=== PATIENT | male | born 1975 | race Caucasian/White ===

== ENCOUNTER 2018-12-24 19:05 | Emergency (ER) | payer SELFPAY ==
[~2018-12-24] VITALS: Ht 165.1 cm; Wt 59.1 kg
[~2018-12-24 19:05] MED LIST: GENTAMICIN EYE D5 ML OS; LORTAB 5/500 501 TAB PO; MOTRIN 600600 MG/TAB PO; NO HOME MEDICATIONS; NORCO 325 MG-51 TAB PO
== END 2018-12-24 23:35 | disposition left against medical advice (07) ==
LOC: COL.ER 19:05
DX: K08.89 Other specified disorders of teeth and supporting structures (principal)

== ENCOUNTER 2019-05-01 11:16 | Emergency (ER) | payer SELFPAY ==
[~2019-05-01] VITALS: Ht 165.1 cm; Wt 63.5 kg
[2019-05-01 11:39] VITALS: BP 126/88; TEMP 98
[2019-05-01 13:16] VITALS: PULSE 82
== END 2019-05-01 13:19 | disposition home or self-care (01) ==
LOC: COL.ER 11:16
DX: S22.31XA Fracture of one rib, right side, initial encounter for closed fracture (principal); F17.210 Nicotine dependence, cigarettes, uncomplicated; W50.0XXA Accidental hit or strike by another person, initial encounter
CPT/HCPCS: A9284

== ENCOUNTER 2019-11-16 18:26 | Emergency (ER) | payer SELFPAY ==
[~2019-11-16] VITALS: Ht 165.1 cm; Wt 54.5 kg
[2019-11-16 19:12] VITALS: TEMP 97.9
[2019-11-16 21:21] LABS: BASO % 0.4 % (0.0-2.0); EOS # 0.1 (0.0-0.7); EOS % 0.8 % (0-4.0); GRAN # 6.3 (1.4-6.5); GRAN % 62.7 % (42.2-75.2); HEMATOCRIT 46.4 % (42.0-52.0); HEMOGLOBIN 15.4 g/dl (13.5-18.0); LYMPH # 2.5 (1.2-3.4); LYMPH % 25.2 % (20.0-51.0); MEAN CELL VOLUME 90 fl (80.0-100.0); MEAN CORPUSCULAR HEMOGLOBIN 30 pg (27.0-31.0); MEAN CORPUSCULAR HGB CONC 33 g/dl (33.0-37.0); MEAN PLATELET VOLUME 9.2 fl (7.4-10.4); MONO # 1.1 (0.1-0.6); MONO % 10.5 % (1.7-9.3); PLATELET COUNT 480 K/mm3 (130-400); RED BLOOD COUNT 5.18 M/mm3 (4.20-5.60); REDCELL DISTRIBUTION WIDTH-CV 14.5 % (11.5-14.5)
[2019-11-16 22:11] LABS: ALANINE AMINOTRANSFERASE 243 U/L (21-72); ALBUMIN 4.3 gm/dL (3.5-5.0); ALKALINE PHOSPHATASE 98 U/L (50-136); ANION GAP 8 mmol/L (7-16); AST,SGOT 104 U/L (15-37); BILIRUBIN,TOTAL 0.4 mg/dL (0.0-1.0); BLOOD UREA NITROGEN 18 mg/dL (9-20); CARBON DIOXIDE 27 mmol/L (22-30); CHLORIDE 101 mmol/L (98-107); GLUCOSE 103 mg/dL (74-106); LIPASE 58 U/L (23-300); POTASSIUM 4.3 mmol/L (3.4-5.0); SODIUM 137 mmol/L (137-145); TOTAL PROTEIN 7.5 gm/dL (6.4-8.2)
[2019-11-16 22:12] LABS: C-REACTIVE PROTEIN < 0.5 mg/dL (0.0-0.9)
[2019-11-16 22:29] LABS: COLLECTION METHOD CLEAN CATCH
[2019-11-16 22:37] LABS: MUCOUS Present /lpf; PH 5 (5-8); SQUAMOUS EPITHELIAL 0-2 /hpf; URINE APPEARANCE Clear; URINE BACTERIA None Seen /hpf; URINE BILIRUBIN Negative (NEGATIVE); URINE BLOOD Negative (NEGATIVE); URINE COLOR Yellow; URINE GLUCOSE Negative (NEGATIVE); URINE KETONE Negative (NEGATIVE); URINE LEUKOCYTE ESTERASE Negative (NEGATIVE); URINE NITRATE Negative (NEGATIVE); URINE PROTEIN(semi-quant) Negative (NEGATIVE); URINE RBC 0-2 /hpf; URINE UROBILINOGEN Negative (NEGATIVE)
[2019-11-16] MEDS ORDERED: FLEXERIL 1010 MG/TAB PO (23:04)
[2019-11-16 23:15] VITALS: BP 102/64; PULSE 88
== END 2019-11-16 23:15 | disposition home or self-care (01) ==
LOC: COL.ER 18:26
PROVIDERS: Emergency Medicine
DX: M54.5 Low back pain (principal); G89.29 Other chronic pain; R19.7 Diarrhea, unspecified; R10.30 Lower abdominal pain, unspecified; R11.0 Nausea; F17.210 Nicotine dependence, cigarettes, uncomplicated; Z87.39 Personal history of other diseases of the musculoskeletal system and connective tissue
CPT/HCPCS: J1885

== ENCOUNTER 2019-11-17 23:07 | Emergency (ER) | payer SELFPAY ==
[~2019-11-17] VITALS: Ht 165.1 cm; Wt 59.1 kg
[~2019-11-17 23:07] MED LIST changes: +FLEXERIL 1010 MG/TAB PO
[2019-11-17 23:38] LABS: BASO % 0.2 % (0.0-2.0); EOS # 0.1 (0.0-0.7); EOS % 0.7 % (0-4.0); GRAN # 9.6 (1.4-6.5); GRAN % 77.1 % (42.2-75.2); HEMATOCRIT 47.7 % (42.0-52.0); HEMOGLOBIN 15.6 g/dl (13.5-18.0); LYMPH # 1.4 (1.2-3.4); LYMPH % 11.1 % (20.0-51.0); MEAN CELL VOLUME 90 fl (80.0-100.0); MEAN CORPUSCULAR HEMOGLOBIN 29 pg (27.0-31.0); MEAN CORPUSCULAR HGB CONC 33 g/dl (33.0-37.0); MEAN PLATELET VOLUME 8.5 fl (7.4-10.4); MONO # 1.3 (0.1-0.6); MONO % 10.5 % (1.7-9.3); PLATELET COUNT 485 K/mm3 (130-400); REDCELL DISTRIBUTION WIDTH-CV 14.4 % (11.5-14.5)
[2019-11-17 23:44] LABS: ALBUMIN 4.6 gm/dL (3.5-5.0); BILIRUBIN,TOTAL 0.6 mg/dL (0.0-1.0); CALCIUM 9.4 mg/dL (8.4-10.2); CREATININE, serum 1.03 (0.66-1.25); POTASSIUM 4.7 mmol/L (3.4-5.0); TOTAL PROTEIN 8.2 gm/dL (6.4-8.2)
[2019-11-18 02:00] VITALS: BP 122/68; PULSE 72; TEMP 97.8
== END 2019-11-18 02:00 | disposition home or self-care (01) ==
LOC: COL.ER 23:07
PROVIDERS: Emergency Medicine
DX: K85.90 Acute pancreatitis without necrosis or infection, unspecified (principal)
CPT/HCPCS: J2765; J7030; Q9967

== ENCOUNTER 2021-04-15 22:04 | Emergency (ER) | payer SELFPAY ==
[~2021-04-15] VITALS: Ht 165.1 cm; Wt 59.1 kg
[~2021-04-15 22:04] MED LIST changes: +BACTRIM DS 8001 TAB PO; +CEPHALEXIN500 M1 PO
[2021-04-16 00:20] VITALS: BP 103/76; PULSE 65; TEMP 98.4
== END 2021-04-16 00:20 | disposition home or self-care (01) ==
LOC: COL.ER 22:04
DX: E86.0 Dehydration (principal); R42 Dizziness and giddiness; F17.210 Nicotine dependence, cigarettes, uncomplicated

== ENCOUNTER 2021-05-24 00:03 | Emergency (ER) | payer SELFPAY ==
[~2021-05-24] VITALS: Ht 165.1 cm; Wt 61.4 kg
[2021-05-24 00:08] VITALS: BP 136/109; PULSE 112; TEMP 98.2
== END 2021-05-24 00:30 | disposition left against medical advice (07) ==
LOC: COL.ER 00:03
DX: R07.89 Other chest pain (principal); F17.210 Nicotine dependence, cigarettes, uncomplicated

== ENCOUNTER 2021-05-24 01:09 | Emergency (ER) | payer SELFPAY | END 2021-05-24 01:44 | disposition left against medical advice (07) | LOC: COL.ER 01:09 | DX: R52 Pain, unspecified (principal) ==

== ENCOUNTER → 2021-08-12 | Emergency (ER) | payer SELFPAY ==
[~2021-08-12] VITALS: Ht 165.1 cm; Wt 56.8 kg
[2021-08-12 19:55] VITALS: BP 120/80; PULSE 93; TEMP 98.2
== END ==
LOC: COL.ER 19:54
DX: Z04.6 Encounter for general psychiatric examination, requested by authority (principal)

== ENCOUNTER 2021-10-26 04:10 | Emergency (ER) | payer SELFPAY ==
[~2021-10-26] VITALS: Ht 165.1 cm; Wt 61.4 kg
[2021-10-26 04:15] VITALS: BP 135/89; PULSE 102; TEMP 97.8
== END 2021-10-26 06:29 | disposition left against medical advice (07) ==
LOC: COL.ER 04:10
DX: R45.851 Suicidal ideations (principal); F17.210 Nicotine dependence, cigarettes, uncomplicated

== ENCOUNTER → 2023-10-29 | Outpatient (CLI) | payer OTHER | LOC: COL.RAD 09:04 | DX: M79.652 Pain in left thigh (principal) ==